=== PATIENT | female | born 1960 ===

== ENCOUNTER 2017-07-23 11:52 | Emergency (ER) | payer OTHER, MEDICAID ==
[2017-07-23 12:18] VITALS: BMI 25.7
[2017-07-23 12:21] VITALS: O2SAT 100
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
[2017-07-23 15:00] VITALS: BP 131/85; PULSE 64; RESP 18; TEMP 97.7
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
== END 2017-07-23 15:27 | disposition home or self-care (01) ==
LOC: C.ER 11:52
DX: S13.9XXA Sprain of joints and ligaments of unspecified parts of neck, initial encounter (principal); V49.60XA Unspecified car occupant injured in collision with unspecified motor vehicles in traffic accident, initial encounter
CPT/HCPCS: 70450; 72125; 96372; 99284; J1885